=== PATIENT | female | born 1990 | race Caucasian/White ===

== ENCOUNTER → 2021-10-03 15:23 | Outpatient (CLI) | payer OTHER, SELFPAY ==
--- NOTE | 2021-10-03 15:26 | DI.US.S_ITS ---
PROCEDURE: US PELVIC COMPLETE INDICATIONS: HEAVY MENSTRUAL PERIODS TECHNIQUE: Real-time scanning was performed of the pelvic organs, with image documentation. Additional endovaginal scanning was necessary due to incomplete visualization of the adnexal and endometrial structures by transabdominal scanning. COMPARISON: None. FINDINGS: Uterus: Uterus is retroverted and normal in size at 6.3 x 3.5 x 5.8 cm. The myometrium is homogeneous. The endometrium measures 2.1 mm combined thickness. There are several punctate echogenic foci adjacent and contiguous with the endometrium. Ovaries: Right ovary measures 3.5 x 1.1 x 1.4 cm in the left ovary measures 3.1 x 1.7 x 1.4 cm. No ovarian or adnexal masses are seen. Other: No pathologic free abdominal or pelvic fluid. IMPRESSION: 1. Echogenic punctate foci adjacent and contiguous with the endometrial complex likely related to retained blood products. If clinically indicated, short-term follow-up ultrasound could be performed to assess for interval resolution. 2. Normal appearance of the ovaries bilaterally. We strive to produce accurate, complete, and clear reports of imaging services. To assist us in improving patient care, this report was composed using standard report templates and voice recognition software. Therefore, it may contain abnormal punctuation, insertions and/or omissions. Occasional wrong-word or sound-alike substitutions may occur. Though we review the report and make efforts to correct it, we do recommend that the report be read carefully in proper context to recognize any text inaccuracies. Dictated by: Jean Paul PITTS Interpreted: Duke Vargas MD on 10/03/2021 at 16:12 Transcribed by: TREVER on 10/03/2021 at 16:14 Approved by: Duke Vargas M.D. on 10/10/2021 at 13:01
== END ==
PROVIDERS: PCP Family Medicine; Referring Provider Obstetrics & Gynecology; Visit Provider Obstetrics & Gynecology
DX: N92.0 Excessive and frequent menstruation with regular cycle (principal)
CPT/HCPCS: 76830; 76856

== ENCOUNTER → 2021-11-22 15:36 | Outpatient (CLI) | payer OTHER, SELFPAY ==
[2021-11-22 17:03] LABS: COVID19 -Nasal RAPID Negative (Negative)
== END ==
PROVIDERS: PCP Family Medicine; Visit Provider Obstetrics & Gynecology
DX: Z01.812 Encounter for preprocedural laboratory examination (principal); Z20.822 Contact with and (suspected) exposure to COVID-19
CPT/HCPCS: 87635

== ENCOUNTER 2021-11-23 08:38 | Day surgery (SDC) | payer OTHER, SELFPAY ==
[2021-11-23] VITALS (12 sets, daily range): BP systolic 77–125; BP diastolic 49–78; PULSE 12–98; RESP 12–51; TEMP 36–36.7; O2SAT 99–100; BMI 26.6
--- NOTE | 2021-11-23 | PATH_ITS ---
[facility] Accession Number: [id number] No. of containers..03 Tissue . 01 Material submitted: . PART A: fallopian tube - BILATERAL FALLOPIAN TUBES PART B: endocervix - ENDOCERVICAL CURETTINGS PART C: endometrium - ENDOMETRIAL CURETTINGS . 02 Diagnosis: A. Bilateral Fallopian Tubes, Tubal Ligation: Complete cross-sections of segments of fallopian tube x2; negative for atypia or malignancy. . B. Endocervical Curettings: Portions of lower uterine segment, some with vessels, suggestive of polyp; negative for glandular dysplasia, glandular hyperplasia, cytologic atypia, or malignancy. Small fragments of mildly inflamed endocervical tissue; negative for glandular dysplasia or malignancy. Scant portions of metaplastic squamous mucosa; negative for squamous dysplasia or malignancy. . C. Endometrial Curettings: Focal glandular crowding in a background of disordered proliferative endometrium; negative for cytologic atypia or malignancy. [facility] 11/28/2021 1631 Local . 02 Electronically signed: . Erna Wagner MD, Pathologist NPI- [id number] . 01 Gross description: . A. Labeled with the patient's name and bilateral fallopian tubes. It is composed of two intact fimbriated fallopian tube segments, which measure 5.0 cm and 3.0 cm in length and range in diameter from 0.5 to 0.6 cm. The serosal surface is vigil-loco to vigil-brown and smooth. Sectioning reveals a pinpoint stellate lumen. The fimbriae are dark brown and unremarkable. [employer] sections from both tubes are submitted. . A1- Longer fallopian tube. A2 - [place] fallopian tube. . B. The specimen is received in formalin labeled with the patient's name and endocervical curettings. It is composed of an aggregate of 2.0 x 1.5 x 0.3 cm red-brown soft tissue fragments and blood clots. The specimen is entirely submitted in B1. . C. The specimen is received in formalin labeled with the patient's name and endometrial curettings. It is composed of red-brown soft tissue fragments measuring 2.0 x 1.0 x 0.2 cm in aggregate. The specimen is entirely submitted in cassette C1. ([id number]) . /[facility] 11/26/2021 [facility] . 02 Pathologist provided ICD-10: N85.00, Z30.2 . 02 CPT . 212236, 744557, [id number] Specimen Comment: A courtesy copy of this report has been sent to [facility] Performed at: 01 [facility] [address] [id number] MD Duke Garcia MD Phone: [phone] Performed at: 02 [facility] [address] [place] [id number] MD Barbara Wynn MD Phone: [phone]
[2021-11-23] MEDS: SCOPOLAMINE 1 PATCH TOP (09:03)
[2021-11-23] MEDS: GABAPENTIN 300 MG CAPSULE PO (09:03)
[2021-11-23] MEDS: ACETAMINOPHEN 325 MG TABLET 975 MG PO (09:03)
--- NOTE | 2021-11-23 09:46 | SUR.PREOP ---
Pt with vagal episode after IV insertion. Pt got diaphoretic and nauseated. Pt passed out for approx 10 seconds. VS as charted. O2 placed at 2LNC. IV noted to be infiltrated. Restarted in left wrist. Pt awake and alert. Feeling better.
[2021-11-23] MEDS: LACTATED RINGERS 1,000 ML 42 ML IV ×2 (09:57→11:24)
--- NOTE | 2021-11-23 10:27 | PM.PREOP ---
Pre-operative Note COVID-19 COVID-19 status: Negative Result date/Date tested (Pos, Neg/Pending): 11/22/21 Criteria for continued procedure: Non-surgical alternatives not available or appropriate per current SOC Interval Note History & Physical reviewed/Exam performed by Physician: Yes Changes to H&P: No
--- NOTE | 2021-11-23 10:27 | PM.GYNOP.1 ---
Operative Date/Time/Diagnoses Date of procedure: 11/23/21 Time of procedure: 10:45 Pre-op diagnosis: Menorrhagia Request for sterilization Post-op diagnosis: other (CATALINA, peritoneal endometriosis, Stage 1) Procedure & Clinicians Procedure: Procedures Operation Date: 11/23/21 09:45 <No data on this case meets the specified criteria> Indications: Deanne is a 31-year-old LMP 2 weeks ago who presented initially to discuss possible hysterectomy due to a lifelong history of menorrhagia.? Menarche occurred 12 in her periods were regular throughout her adult life.? Beginning as an early teen however her periods were extremely painful and very very heavy requiring her to miss school at least 1 day out of each cycle.? She was placed on oral contraceptives at age 14 and has been on control pills continuously since then with the exception of or stopping them to become 1st in May of 2014 which ended miscarriage and a 2nd in September of 2014 which resulted in delivery of a viable 9 lb 5 oz male infant in June of 2015.? She has been on oral contraceptives continuously in the she has no dyspareunia and she and her are using oral contraceptives for control.? Most recent Pap smears been within the last 2-3 years.? All Paps during her life time were normal.? Or the patient is also concerned because she is been on oral contraceptives for more than 15 years of her reproductive life.? Or because of her significant back issues and other comorbidities, the patient is adamant that she does not want future pregnancies and her is supportive of that decision.? In addition the control pills themselves create issues for the patient in so far as side effects and she would ultimately like to be off pills completely or less concerned about her very heavy and painful periods returning.? After considering all options, the patient wishes to proceed with hysteroscopy/biopsies with dilation and curettage of the uterus along with endometrial ablation and simultaneous laparoscopic bilateral salpingectomy for sterilization.? She presents today for her scheduled surgery. Surgeon: Farshad Jay Anesthesia Type: General Operative Notes Findings: The uterus is acutely retroverted and normal in size and shape. There is are to superficial peritoneal implants on the right side of the posterior cul-de-sac as well as to superficial implants on the left lateral aspect of the anterior cul-de-sac near the insertion of the round ligament into the pelvic sidewall. Superficial peritoneal implants are also noted in the area of the right paracolic gutter ventral but adjacent to the cecum. Both fallopian tubes appeared to be normal as do both ovaries. No other abnormalities were seen in the pelvis or upper abdomen as visualized laparoscopically. The endometrial cavity is normal to hysteroscopic evaluation with no focal lesions or distortion of the cavity noted. Closure Type: primary Specimen(s): portion of left tube and portion of right tube Estimated blood loss (mL): 15 Blood products transfused: none Procedure in detail: With the patient under satisfactory general anesthesia in the modified dorsal lithotomy position, the perineum vagina and abdomen prepped and draped in the usual fashion for hysteroscopy and laparoscopy. A pre-surgical safety time-out was then taken in accordance with [facility] Main OR protocols. The procedure was initiated with infiltration of the umbilicus with 0.5% Marcaine with epinephrine and a 5 mm incision on the lower edge of the umbilicus. A Veress needle was then used to insufflate the abdomen with carbon dioxide and once insufflated, a 5 mm trocar and sleeve were placed through the umbilical incision. The presence of the laparoscopic sleeve in the abdominal cavity was confirmed with the laparoscoped and a 2nd and 3rd 5 mm port was placed in the left and right mid quadrants using a similar technique. With a 3 puncture technique, the pelvis and abdomen were visualized with the findings as noted previously. The distal right fallopian tube was then grasped and elevated so that the fimbria of Anne could be coagulated and divided with the PK device. Coagulation and division of the mesosalpinx was then carried out to the level the cornua which was then coagulated and divided with complete excision of the fallopian tube on the right side. The tube was then removed through 1 of the ports and attention turned to the left adnexa. The left fallopian tube was elevated with a grasping forcep and the fimbrial vera cut coagulated and divided with the PK device. The dissection was then carried across the mesosalpinx with each pedicle coagulated and divided with the PK. Once the cornua was reached the base of the fallopian tube was then coagulated and divided with the PK. The left fallopian tube was then removed from the abdominal cavity with a grasping forcep. Attention was then turned to the areas of superficial endometriosis all of which were coagulated using bipolar current applied via the PK device. Once all abnormalities have been addressed, the pneumoperitoneum was vented and the port incisions closed with 4-0 Monocryl using inverted interrupted stitches. Skin glue was applied followed by appropriate dressings. Attention was then turned to performance of the hysteroscopic portion of the case. A speculum was placed in the vagina and the cervix visualized. The endocervical canal was then easily dilated to 9 mm and a hysteroscope was placed inside the endometrial cavity. Using sterile saline as a distention medium the endometrial cavity was fully visualized and seen to be completely normal in all respects. The hysteroscope was then removed and the fractional curettage of the uterus was accomplished with separate endocervical and endometrial curetting specimens obtained and submitted. At that point the NovaSure uterine sound was placed and the cavity determined to be 4.0 cm in depth. The NovaSure device was then placed and the transverse diameter of the cavity was established to be 3.5 cm. The cavity integrity test was then found to be normal and ablation of the endometrial cavity initiated with the NovaSure. The time of ablation was 1 minute 7 seconds and the power utilized for ablation was 77 w. Hysteroscopy following ablation demonstrated a completely blanched and desiccated endometrial surface throughout the endometrial cavity. The hysteroscope was removed and the tenaculum which had been applied to the anterior lip of the cervix was also removed. No significant bleeding was noted and the speculum was then removed at the termination of the case. The patient was awakened and transferred to the PACU for a period of observation after having tolerated the procedure well. Complications: none Post-operative Condition: stable Disposition: PACU Plan for aftercare: Routine post-op care. In-office follow-up will be in two weeks or as needed.
--- NOTE | 2021-11-23 11:09 | SUR.OPER ---
Lithotomy on padded OR bed, head on pillow, arms padded with gel and tucked. Legs secured in padded yellow fins stirrups.
[2021-11-23] MEDS: BUPIVACAINE 0.5% (PF) 30 ML, EPINEPHrine 0.15 MG INJ (11:19)
[2021-11-23] MEDS: fentaNYL 100 MCG/2 ML INJ IV (12:33)
[2021-11-23] MEDS: OXYCODONE IR 5 MG TABLET PO (12:35)
== END 2021-11-23 14:00 | disposition home or self-care (01) ==
PROVIDERS: PCP Family Medicine; Referring Provider Obstetrics & Gynecology; Visit Provider Obstetrics & Gynecology
PROC: 0UT74ZZ Resection of Bilateral Fallopian Tubes, Percutaneous Endoscopic Approach (ICD-10-PCS; CPT 58661; principal; 2021-11-23 09:45)
PROC: 0UDB8ZZ Extraction of Endometrium, Via Natural or Artificial Opening Endoscopic (ICD-10-PCS; CPT 58558; 2021-11-23 09:45)
DX: Z30.2 Encounter for sterilization (principal); M79.7 Fibromyalgia; G25.81 Restless legs syndrome; N80.3 Endometriosis of pelvic peritoneum
CPT/HCPCS: 58661; 58563; 81025; J0171; J0330; J1100; J1885; J2250; J2405; J2704; J3010

== ENCOUNTER 2022-04-03 13:35 | Emergency (ER) | payer OTHER, SELFPAY ==
[2022-04-03 13:39] VITALS: BP 131/73; PULSE 90; RESP 20; TEMP 36.4; O2SAT 100
--- NOTE | 2022-04-03 18:25 | ED.ABDPAIN ---
HPI - Abdominal Pain General Chief Complaint: Abdominal Pain Stated Complaint: Abd pain x 5 weeks, diarrhea, fatigue Time Seen by Provider: 04/03/22 17:16 Source: patient Mode of arrival: Ambulatory History of Present Illness HPI narrative: Patient here for complaints of watery diarrhea daily for the past 3 weeks. On average 3 or 5 episodes a day. Last episode this morning. As epigastric discomfort that does not radiate. Occasional nausea vomiting. No fever chills. No urinary complaints. Patient states has history of IBS. Has had colonoscopy in her younger years. Did see her primary care at the [facility] and had stool samples and blood work done in her 1st week of complaints and she was informed it was all normal. She is under lot of stress at this time. She is in a family and they are being transferred to [facility] this upcoming Friday. They have been very busy trying to pack up to move. Denies . Has history of uterine ablation. No personal or family history of inflammatory bowel disease/ulcerative colitis or Crohn's disease Related Data Home Medications Medication Instructions Recorded Confirmed cetirizine 10 mg tablet (Zyrtec) 10 mg PO DAILY 09/19/21 12/11/21 Previous Rx's Medication Instructions Recorded oxycodone-acetaminophen 5 mg-325 1 tab PO Q4-6H PRN pain #12 tabs 11/23/21 mg tablet (Percocet) pantoprazole 40 mg tablet,delayed 40 mg PO DAILY #14 tabs 04/03/22 release (Protonix) sucralfate 1 gram tablet (Carafate) 1 g PO BID #30 tabs 04/03/22 Allergies Allergy/AdvReac Type Severity Reaction Status Date / Time capsaicin Allergy Severe Anaphylaxis Verified 12/11/21 08:28 Sulfa (Sulfonamide Allergy Severe Anaphylaxis Verified 11/23/21 08:49 Antibiotics) Review of Systems Review of Systems Narrative: GENERAL: Denies chills, fatigue, malaise, fever, sweats. HEENT: Denies sinus pain, ear pain, sore throat RESPIRATORY: Denies dyspnea, cough CARDIOVASCULAR: Denies chest pain, palpitations GASTROINTESTINAL: Positive for diarrhea nausea, vomiting, abdominal pain, negative for bloody stools or black stools : Denies dysuria, frequency, hematuria MUSCULOSKELETAL: denies muscle or bony pain SKIN: Denies rash, skin lesions NEUROLOGIC: Denies weakness, numbness ROS Unobtainable: All systems reviewed & are unremarkable except as noted in HPI and below Patient History Medical History Asthma Fibromyalgia History of endometriosis Surgical History History of endometrial ablation History of sterilization procedure Social History household members: spouse Smoking Status: Former smoker alcohol intake: current Smoking Status: Former smoker alcohol intake frequency: a few times a month Substance Use Type: does not use Exam Narrative Exam Narrative: GENERAL: in no distress, not toxic not dyspneic HEAD: Normocephalic. EYES: Pupils equal round No scleral icterus. ENT: Mucous membranes moist. NECK: Trachea midline. CARDIOVASCULAR: Regular rate and rhythm without murmurs RESPIRATORY: Clear to auscultation. Breath sounds equal bilaterally. No wheezes, rales, or rhonchi. GASTROINTESTINAL: Abdomen soft, non-tender EXTREMITIES: No gross deformities. BACK: No flank tenderness. NEURO: AOx4. SKIN: Warm and dry PSYCH: Not anxious, is cooperative Initial Vital Signs Initial Vital Signs: Vital Signs Temperature 97.5 F L 04/03/22 13:39 Pulse Rate 90 04/03/22 13:39 Respiratory Rate 20 04/03/22 13:39 Blood Pressure 131/73 04/03/22 13:39 Pulse Oximetry 100 04/03/22 13:39 Oxygen Delivery Method 04/03/22 13:39 Course Course Course Narrative: No new issues during course of stay Orders Ordered: Discontinued Medications Pantoprazole Sodium (Pantoprazole Dr 20 Mg Tablet) 40 mg PO NOW ONE Stop: 04/03/22 18:30 Last Admin: 04/03/22 19:44 Dose: 40 mg Documented By: NR Sucralfate (Sucralfate 1 Gm/10 Ml Oral Susp) 1 gm PO NOW ONE Stop: 04/03/22 18:30 Last Admin: 04/03/22 19:44 Dose: 1 gm Documented By: NR Reevaluation(s) Reevaluation #1: Reviewed results with patient and agrees no CT scan imaging at this time. Already has stool studies by primary care. Not toxic. Agrees for follow-up with her new primary care when she reaches her new her residence/[place] base Time: 20:23 Vital Signs Vital signs: Vital Signs - 8 hr 04/03/22 13:39 Temperature 97.5 F L Pulse Rate 90 Respiratory Rate 20 Blood Pressure 131/73 Pulse Oximetry 100 Oxygen Delivery Method Room Air MDM - Abdominal Pain Differential Diagnosis Differential diagnosis: Likely abdominal pain, gastroenteritis and other (Irritable bowel syndrome/IBD/gastritis/GERD) Lab Data Result diagrams: 04/03/22 18:35 04/03/22 18:35 Labs: Lab Results 04/03/22 04/03/22 Range/Units 18:35 18:35 WBC 8.3 (4.5-11.0) X10^3/uL RBC 4.45 (4.0-5.2) X10^6/uL Hgb 14.4 (12.0-16.0) g/dL Hct 41.5 (36-46) % MCV 93.4 (80-100) fL MCH 32.4 (26-34) PG MCHC 34.7 (30-36) % RDW 13.2 (11.6-14.8) % Plt Count 185 (150-400) X10^3/uL Neut % (Auto) 71.3 (50-75) % Lymph % (Auto) 21.4 L (25-40) % [place] % (Auto) 6.6 (3-14) % Eos % (Auto) 0.6 L (2-4) % Baso % (Auto) 0.1 (0-2) % Neut # (Auto) 5900 (2549-6202) /uL Lymph # (Auto) 1800 (0311-0929) /uL [place] # (Auto) 600 (0-900) /uL Eos # (Auto) 100 (0-450) /uL Baso # (Auto) 0 (0-100) /uL Sodium 141 (137-145) mmol/L Potassium 4.1 (3.4-5.1) mmol/L Chloride 106 (98-107) mmol/L Carbon Dioxide 25 (22-32) mmol/L BUN 8 (7-17) mg/dL Creatinine 0.71 (0.52-1.04) mg/dL Estimated GFR > 60 (>60) mL/min BUN/Creatinine Ratio 11.3 (6-22) Glucose 82 (70-100) mg/dL Calcium 9.3 (8.4-10.2) mg/dL Total Bilirubin 0.8 (0.2-1.3) mg/dL AST 24 (14-36) IU/L ALT 18 (<35) IU/L Alkaline Phosphatase 66 (38-126) U/L Total Protein 7.7 (6.3-8.2) g/dL Albumin 4.7 (3.5-5.0) g/dL Globulin 3.0 (1.7-4.1) g/dL Albumin/Globulin Ratio 1.6 (1.0-2.8) Lipase 148 (23-300) U/L Point of care testing: Urine Dip Bedside Urine Glucose Negative Bedside Urine Bilirubin - Negative Bedside Urine Ketone - Negative Urine Specific [place] 1.005 Bedside Urine Occult Blood - Negative Bedside Urine pH 6.5 Bedside Urine Protein - Negative Bedside Urine Urobilinogen - Negative Bedside Urine Nitrite - Negative Bedside Urine Leukocytes - Negative Esterase MDM Narrative Medical decision making narrative: Appropriate for discharge home. Patient not toxic. Laboratory studies and exam reassuring. Clinically likely year bowel syndrome/gastritis. Patient has had a lot of stress recently trying to move to [facility]. Return precautions reviewed with her. No imaging indicated this time. Discharge Plan Departure Patient Disposition: Home Clinical Impression: Abdominal pain, Diarrhea Instructions: DI for Diarrhea and Traveler's Diarrhea -- Adult, DI for Irritable Bowel Syndrome Activity Restrictions/Additional Instructions: Keep well hydrated. See your new primary care physician when you establish you new residence. Prescription for Protonix and Carafate has been provided for you. You make it equivalent generic form [id number] if you desire. Return if worse if any questions or concerns Prescriptions: New pantoprazole [Protonix] 40 mg tablet,delayed release (DR/EC) 40 mg PO DAILY Qty: 14 0RF sucralfate [Carafate] 1 gram tablet 1 g PO BID Qty: 30 0RF No Action cetirizine [Zyrtec] 10 mg tablet 10 mg PO DAILY oxycodone-acetaminophen [Percocet] 5-325 mg tablet 1 tab PO Q4-6H PRN (Reason: pain) Qty: 12 0RF Referrals: Lottie Donald DO [Primary Care Provider] - Visit Report Forms: Patient Portal/API
[2022-04-03 19:03] LABS: Add Manual Diff / Slide Review NO; Basophils Absolute Auto 0 /uL (0-100); Basophils Percent Auto 0.1 % (0-2); Eosinophils Absolute Auto 100 /uL (0-450); Eosinophils Percent Auto 0.6 % (2-4); Hematocrit 41.5 % (36-46); Hemoglobin 14.4 g/dL (12.0-16.0); Lymphocytes Absolute Auto 1800 /uL (1100-4500); Lymphocytes Percent Auto 21.4 % (25-40); Mean Corpuscular HGB Conc 34.7 % (30-36); Mean Corpuscular Hemoglobin 32.4 PG (26-34); Mean Corpuscular Volume 93.4 fL (80-100); Monocytes Absolute Auto 600 /uL (0-900); Monocytes Percent Auto 6.6 % (3-14); Neutrophils Absolute Auto 5900 /uL (1500-7000); Neutrophils Percent Auto 71.3 % (50-75); Platelet Count 185 X10^3/uL (150-400); Red Blood Cell Count 4.45 X10^6/uL (4.0-5.2); Red Cell Distribution Width 13.2 % (11.6-14.8); White Blood Cell Count 8.3 X10^3/uL (4.5-11.0)
[2022-04-03 19:16] LABS: Alanine Aminotransferase 18 IU/L (<35); Albumin 4.7 g/dL (3.5-5.0); Albumin Globulin Ratio 1.6 (1.0-2.8); Alkaline Phosphatase 66 U/L (38-126); Aspartate Aminotransferase 24 IU/L (14-36); BUN Creatinine Ratio 11.3 (6-22); Bilirubin Total 0.8 mg/dL (0.2-1.3); Blood Urea Nitrogen 8 mg/dL (7-17); Calcium 9.3 mg/dL (8.4-10.2); Carbon Dioxide 25 mmol/L (22-32); Chloride 106 mmol/L (98-107); Estimated Glomerular Filt Rate > 60 mL/min (>60); Glucose 82 mg/dL (70-100); HEMOLYSIS < 15 (0-50); Lipase 148 U/L (23-300); Potassium 4.1 mmol/L (3.4-5.1); Sodium 141 mmol/L (137-145); Total Protein 7.7 g/dL (6.3-8.2)
[2022-04-03] MEDS: SUCRALFATE 1 GM/10 ML ORAL SUSP PO (19:44)
[2022-04-03] MEDS: PANTOPRAZOLE DR 20 MG TABLET 40 MG PO (19:44)
== END 2022-04-03 20:46 | disposition home or self-care (01) ==
PROVIDERS: Emergency Medicine; Emergency Provider Emergency Medicine; PCP Family Medicine
DX: R10.9 Unspecified abdominal pain (principal); R19.7 Diarrhea, unspecified
CPT/HCPCS: 36415; 80053; 81003; 83690; 85025; 99283